=== PATIENT | male | born 1970 | race Caucasian/White ===

== ENCOUNTER 2019-10-12 17:01 | Emergency (ER) | payer SELFPAY ==
[~2019-10-12] VITALS: Ht 175.3 cm; Wt 109.8 kg
[2019-10-12 17:16] VITALS: Ht 175.3 cm; Wt 109.8 kg
[2019-10-12 20:21] VITALS: BP 129/97
== END 2019-10-12 20:21 | disposition home or self-care (01) ==
LOC: ED 17:01
DX: S06.0X0A Concussion without loss of consciousness, initial encounter (principal); S01.01XA Laceration without foreign body of scalp, initial encounter; W20.8XXA Other cause of strike by thrown, projected or falling object, initial encounter; Y93.89 Activity, other specified; Y92.89 Other specified places as the place of occurrence of the external cause; Y99.8 Other external cause status
CPT/HCPCS: J7030; J7060